=== PATIENT | female | born 1960 | race Caucasian/White ===

== ENCOUNTER 2025-03-26 20:52 | Inpatient (IN) | payer MEDICARE ==
[~2025-03-26] VITALS: Ht 154.9 cm; Wt 67.6 kg
[2025-03-26] MEDS: SODIUM CHLORIDE 0.9% 1,000 ML IV ONE (22:53)
[2025-03-26] MEDS: DIAZEPAM 5 MG/ML 2ML SYR IV NR (23:00)
[2025-03-26 23:03] LABS: HEMATOCRIT. 42.8 % (36.0-48.0); HEMOGLOBIN. 14.3 g/dL (12.0-16.0); MEAN PLATELET VOLUME 13.1 fl (7.4-10.4); PLATELET 150 x1000/uL (130-400); RED BLOOD CELL COUNT 4.01 mill/uL (4.2-5.4); RED CELL DISTRIBUTION WIDTH 16.1 % (11.6-14.6)
[2025-03-26 23:05] LABS: INR 1.0
[2025-03-26 23:11] LABS: TROPONIN I HIGH SENSITIVITY 34 ng/L (3.0-34)
[2025-03-26 23:30] LABS: BAND% 16.0 % (1.0-6.0); LYMPHOCYTES % MANUAL 7.0 % (20.0-60.0); MONOCYTES % MANUAL 2.0 % (2.0-8.0); NEUTROPHILS % MANUAL 75.0 % (45.0-75.0); PLATELET ESTIMATE NORMAL
[2025-03-26 23:31] LABS: CREATININE 2.9 mg/dL (0.6-1.0); ETHANOL BLOOD < 10 mg/dL (<10); UREA NITROGEN BLOOD 28 mg/dL (9-23)
[2025-03-26 23:33] LABS: ASPARTATE AMINOTRANSFERASE 283 IU/L (<34); BILIRUBIN DIRECT 0.3 mg/dL (<=3.0); BILIRUBIN TOTAL 0.8 mg/dL (0.1-1.0); PROTEIN TOTAL 7.1 g/dL (6.0-8.3)
[2025-03-27] MEDS: CALCIUM GLUCONATE 1GM PREMIX 50 ML IV ONE (00:28)
[2025-03-27] MEDS: SODIUM CHLORIDE 0.9% (SEPSIS BOLUS) IV ONE (01:26)
[2025-03-27] MEDS: CEFTRIAXONE 1GM/50ML 50 ML IV ONE (01:39)
[2025-03-27] MEDS ORDERED: ONDANSETRON HCL 4MG/2ML INJ IV PRN (02:00)
[2025-03-27] MEDS ORDERED: MAGNESIUM/ALUMINUM HYDROXIDE/SIMETHICONE 30ML UDC PO PRN (02:00)
[2025-03-27] MEDS ORDERED: CLONIDINE 0.1MG TABLET PO PRN (02:00)
[2025-03-27] MEDS: MAGNESIUM 2 G PREMIX 50 ML IV NR (02:44)
[2025-03-27] MEDS: VANCOMYCIN 1GM/200ML PMX (BAXTER) IV NR (02:44)
[2025-03-27 03:30] VITALS: BP 152/100; PULSE 118; RESP 20; TEMP 36.6404
[2025-03-27] MEDS: MVI, ADULT NO.1 10 ML, FOLIC ACID 1 MG, THIAMINE HCL 100 MG in SODIUM CHLORIDE 0.9% 1,0... IV SCH (04:16)
[2025-03-27 05:41] VITALS: BP 152/100; PULSE 118; RESP 20; TEMP 36.6; O2SAT 96
[2025-03-27] MEDS: HYDROCODONE/ACETAMINOPHEN 5/325MG TABLET PO PRN (06:05)
[2025-03-27] MEDS: PIPERACILLIN/TAZO 3.375G/50ML 50 ML IV SCH (06:05)
[2025-03-27 07:19] LABS: HEPATITIS C AB NON REACTIVE (Neg) (Negative)
[2025-03-27 08:00] VITALS: BP 100/70; PULSE 100; RESP 17; TEMP 37.9; O2SAT 97
[2025-03-27] MEDS: PANTOPRAZOLE SODIUM 40 MG/VIAL IV SCH (08:44)
[2025-03-27 12:00] VITALS: BP 91/60; PULSE 93; RESP 17; TEMP 38.2; O2SAT 97
[2025-03-27 16:00] VITALS: BP 97/63; PULSE 82; RESP 18; TEMP 37.5; O2SAT 95
[2025-03-27 19:15] LABS: CLARITY URINE CLOUDY (CLEAR); COLOR URINE YELLOW (YELLOW); GLUCOSE URINE NEGATIVE (NEGATIVE); KETONES URINE TRACE (NEGATIVE); LEUKOCYTE ESTERASE URINE 2+ (NEGATIVE); NITRITE URINE NEGATIVE (NEGATIVE); OCCULT BLOOD URINE 3+ (NEGATIVE); PH URINE 5.5 (4.5-8.0); PROTEIN URINE 2+ (NEGATIVE); SPECIFIC GRAVITY URINE 1.013 (1.005-1.030); UROBILINOGEN URINE 1.0 E.U./dL (0.2-1.0)
[2025-03-27 19:26] LABS: *AMPHETAMINES SCREEN URINE NEGATIVE (NEGATIVE); *BARBITURATES SCREEN URINE NEGATIVE (NEGATIVE); *BENZODIAZEPINES SCREEN URINE NEGATIVE (NEGATIVE); *COCAINE SCREEN URINE NEGATIVE (NEGATIVE)
[2025-03-27 19:27] LABS: CANNABINOID URINE SCREEN NEGATIVE (NEGATIVE); ECSTASY MDMA SCREEN URINE NEGATIVE (NEGATIVE); METHADONE URINE SCREEN NEGATIVE (NEGATIVE); OPIATES URINE SCREEN PRESUMPTIVE POSITIVE (NEGATIVE); PHENCYCLIDINE URINE SCREEN NEGATIVE (NEGATIVE)
[2025-03-27 19:30] LABS: SQUAMOUS EPITHELIAL CELL URINE 2+ /lpf (RARE/1+)
[2025-03-27 19:31] LABS: BACTERIA URINE 3+
[2025-03-27 20:00] VITALS: BP 103/67; PULSE 81; RESP 18; TEMP 36.3; O2SAT 95
[2025-03-27 20:54] LABS: HEMATOCRIT. 37.3 % (36.0-48.0); HEMOGLOBIN. 12.4 g/dL (12.0-16.0); MEAN PLATELET VOLUME 12.6 fl (7.4-10.4); PLATELET 93 x1000/uL (130-400); RED BLOOD CELL COUNT 3.45 mill/uL (4.2-5.4); RED CELL DISTRIBUTION WIDTH 15.6 % (11.6-14.6)
[2025-03-27] MEDS: ZOLPIDEM TARTRATE 5MG TABLET PO PRN (21:02)
[2025-03-27 21:12] LABS: CREATININE 2.6 mg/dL (0.6-1.0); UREA NITROGEN BLOOD 39 mg/dL (9-23)
[2025-03-27 21:13] LABS: ASPARTATE AMINOTRANSFERASE 228 IU/L (<34)
[2025-03-27 21:14] LABS: BILIRUBIN DIRECT 0.2 mg/dL (<=3.0); BILIRUBIN TOTAL 0.5 mg/dL (0.1-1.0); PROTEIN TOTAL 5.4 g/dL (6.0-8.3)
[2025-03-27 21:21] LABS: BAND% 10.0 % (1.0-6.0); LYMPHOCYTES % MANUAL 6.0 % (20.0-60.0); METAMYELOCYTES % 2.0 % (0-0); MONOCYTES % MANUAL 7.0 % (2.0-8.0); MYELOCYTES % 2.0 % (0-0); NEUTROPHILS % MANUAL 73.0 % (45.0-75.0); PLATELET ESTIMATE DECREASED
[2025-03-28] VITALS (7 sets, daily range): BP systolic 92–121; BP diastolic 61–84; PULSE 76–89; RESP 17–20; TEMP 36.5–36.9; O2SAT 97–99
[2025-03-28 09:13] LABS: HEMATOCRIT. 38.8 % (36.0-48.0); HEMOGLOBIN. 12.8 g/dL (12.0-16.0); MEAN PLATELET VOLUME 13.1 fl (7.4-10.4); PLATELET 85 x1000/uL (130-400); RED BLOOD CELL COUNT 3.55 mill/uL (4.2-5.4); RED CELL DISTRIBUTION WIDTH 16.3 % (11.6-14.6)
[2025-03-28 09:31] LABS: CREATININE 2.6 mg/dL (0.6-1.0); UREA NITROGEN BLOOD 44.0 mg/dL (9-23)
[2025-03-28] MEDS: POTASSIUM CHLORIDE 20MEQ TABLET SR PO SCH ×2 (11:00→15:14)
[2025-03-28] MEDS ORDERED: POTASSIUM CHLORIDE 20MEQ TABLET SR PO NR (12:15)
[2025-03-28] MEDS: KCL 20MEQ/100ML PREMIX 100 ML IV SCH (13:30)
[2025-03-28] MEDS ORDERED: VANCOMYCIN 500MG PREMIX 100 ML IV SCH (18:00)
[2025-03-28] MEDS: CEFTRIAXONE 2GM/50ML 50 ML IV SCH (18:05)
[2025-03-28 19:56] LABS: PHOSPHORUS 3.6 mg/dL (2.5-4.9)
[2025-03-28 19:59] LABS: TRIGLYCERIDE 332 mg/dL (0-150)
[2025-03-28 20:00] LABS: LDL CHOLESTEROL 37 mg/dL (5-100)
[2025-03-28 21:30] LABS: BAND% 8.0 % (1.0-6.0); LYMPHOCYTES % MANUAL 3.0 % (20.0-60.0); MONOCYTES % MANUAL 5.0 % (2.0-8.0); NEUTROPHILS % MANUAL 84.0 % (45.0-75.0); PLATELET ESTIMATE DECREASED
[2025-03-29] VITALS (7 sets, daily range): BP systolic 120–153; BP diastolic 72–80; PULSE 69–89; RESP 18–20; TEMP 36.1–37; O2SAT 97–99
[2025-03-29 07:11] LABS: HEMATOCRIT. 35.8 % (36.0-48.0); HEMOGLOBIN. 12.1 g/dL (12.0-16.0); MEAN PLATELET VOLUME 13.0 fl (7.4-10.4); PLATELET 101 x1000/uL (130-400); RED BLOOD CELL COUNT 3.37 mill/uL (4.2-5.4); RED CELL DISTRIBUTION WIDTH 16.0 % (11.6-14.6)
[2025-03-29 07:21] LABS: CREATININE 1.9 mg/dL (0.6-1.0)
[2025-03-29 07:22] LABS: UREA NITROGEN BLOOD 36.0 mg/dL (9-23)
[2025-03-29 09:52] LABS: VITAMIN B12 SERUM 1566 pg/mL (211-911)
[2025-03-29] MEDS: KCL 20MEQ/100ML PREMIX 100 ML IV SCH (11:10)
[2025-03-29 14:18] LABS: BAND% 7.0 % (1.0-6.0); EOSINOPHILS % MANUAL 1.0 % (0.0-5.0); LYMPHOCYTES % MANUAL 2.0 % (20.0-60.0); MONOCYTES % MANUAL 11.0 % (2.0-8.0); NEUTROPHILS % MANUAL 79.0 % (45.0-75.0); PLATELET ESTIMATE DECREASED
[2025-03-30] VITALS: BP 127/81; PULSE 94; RESP 18; TEMP 36.7; O2SAT 98
[2025-03-30 04:00] VITALS: BP 129/80; PULSE 91; RESP 20; TEMP 36.9; O2SAT 98
[2025-03-30 05:58] LABS: CREATININE 1.6 mg/dL (0.6-1.0); UREA NITROGEN BLOOD 28.0 mg/dL (9-23)
[2025-03-30 06:33] LABS: HEMATOCRIT. 44.0 % (36.0-48.0); HEMOGLOBIN. 14.2 g/dL (12.0-16.0); MEAN PLATELET VOLUME 12.1 fl (7.4-10.4); PLATELET 164 x1000/uL (130-400); RED BLOOD CELL COUNT 4.05 mill/uL (4.2-5.4); RED CELL DISTRIBUTION WIDTH 16.5 % (11.6-14.6)
[2025-03-30 08:00] VITALS: BP 116/76; PULSE 93; RESP 20; TEMP 36.1; O2SAT 97
[2025-03-30] MEDS ORDERED: LIDOCAINE HCL 1% 10 MG/ML 10ML VIAL ONE (08:15)
[2025-03-30 12:00] VITALS: BP 124/84; PULSE 96; RESP 18; TEMP 36.1; O2SAT 96
[2025-03-30 16:00] VITALS: BP 127/73; PULSE 98; RESP 20; TEMP 36.8; O2SAT 96
[2025-03-30] MEDS ORDERED: NALOXONE HCL 0.4MG/ML VIAL IV PRN (16:45)
[2025-03-30 20:00] VITALS: BP 141/80; PULSE 92; RESP 20; TEMP 36.9; O2SAT 98
[2025-03-30] MEDS: DOCUSATE SODIUM 100MG CAPSULE PO SCH (21:40)
[2025-03-30 22:07] LABS: BAND% 1.0 % (1.0-6.0); EOSINOPHILS % MANUAL 1.0 % (0.0-5.0); LYMPHOCYTES % MANUAL 2.0 % (20.0-60.0); MONOCYTES % MANUAL 14.0 % (2.0-8.0); NEUTROPHILS % MANUAL 82.0 % (45.0-75.0); PLATELET ESTIMATE NORMAL
[2025-03-31] VITALS: BP 138/66; PULSE 59; PULSE 70; RESP 18; TEMP 36.7; O2SAT 97
[2025-03-31 04:00] VITALS: BP 128/60; PULSE 77; RESP 18; TEMP 36.8; O2SAT 98
[2025-03-31 08:00] VITALS: BP 137/82; PULSE 100; RESP 18; TEMP 38.1; O2SAT 98
[2025-03-31] MEDS: ACETAMINOPHEN 325MG TABLET PO PRN (08:38)
[2025-03-31 12:00] VITALS: BP 111/71; PULSE 98; RESP 18; TEMP 36.2; O2SAT 98
[2025-03-31] MEDS ORDERED: THIA100T72 MT (13:07)
[2025-03-31] MEDS ORDERED: SODI650T PO (13:07)
[2025-03-31] MEDS ORDERED: CEFT1FRO5 IV (13:07)
[2025-03-31 13:27] VITALS: BP 141/80; PULSE 98; TEMP 97.1; O2SAT 98
[2025-03-31] MEDS: SODIUM BICARBONATE 650MG TABLET PO SCH (14:27)
[2025-03-31 16:00] VITALS: BP 119/80; PULSE 97; RESP 18; TEMP 36.7; O2SAT 98
== END 2025-03-31 17:15 | DRG 871 ==
LOC: ER 20:52 → 8WST 03-27 01:20 → EDBEDREQTM 03-27 01:22 → EDBEDREQDT 03-27 01:22 → EDBEDREQ 03-27 01:22 → ENRESERV 03-27 01:45
PROVIDERS: ADMIT Internal Medicine; ATTEND Internal Medicine
PROC: 02H633Z Insertion of Infusion Device into Right Atrium, Percutaneous Approach (ICD-10-PCS; principal; 2025-03-30)
PROC: B548ZZA Ultrasonography of Superior Vena Cava, Guidance (ICD-10-PCS; 2025-03-30)
DX: A41.51 Sepsis due to Escherichia coli [E. coli] (principal); E43 Unspecified severe protein-calorie malnutrition; G92.8 Other toxic encephalopathy; K76.7 Hepatorenal syndrome; M62.82 Rhabdomyolysis; N17.9 Acute kidney failure, unspecified; E87.1 Hypo-osmolality and hyponatremia; E87.20 Acidosis, unspecified; N39.0 Urinary tract infection, site not specified; R65.20 Severe sepsis without septic shock; E87.6 Hypokalemia; F10.10 Alcohol abuse, uncomplicated; I12.9 Hypertensive chronic kidney disease with stage 1 through stage 4 chronic kidney disease, or unspecified chronic kidney disease; N18.2 Chronic kidney disease, stage 2 (mild); Z68.28 Body mass index [BMI] 28.0-28.9, adult; Z79.899 Other long term (current) drug therapy
CPT/HCPCS: 36415; 36573; 71045; 74176; 80048; 80061; 80076; 80202; 80305; 80320; 81003; 82533; 82550; 82607; 83036; 83605; 83735; 83880; 84100; 84145; 84443; 84484; 85025; 86705; 87077; 87186; 87340; 93005; 93970; 97162; 99291; A4606; A6449; C1725; J0610; J0696; J2003; J2470; J2543; J3373; J3411; J3475; J3480; J3490; J7030; G0480